=== PATIENT | male | born 1970 | race Caucasian/White ===

== ENCOUNTER → 2017-07-21 | Outpatient (CLI) | payer MEDICARE, OTHER ==
--- NOTE | 2017-07-21 17:41 | MRI ---
EXAM DESCRIPTION: Brain w/oContrast CLINICAL HISTORY: DIZZINESS COMPARISON: None TECHNIQUE: Multiplanar multisequence imaging of the brain including the intravenous administration of contrast. FINDINGS: There is no evidence of acute mass, mass effect, midline shift or hemorrhage. No focal abnormal extra-axial fluid collection is seen. The ventricles, basal cisterns and extra-axial fluid spaces are normal in size and configuration. Brain parenchymal signal is normal. IMPRESSION: Normal exam. Electronically signed by: Colin Singh 07/21/2017 5:40 PM [facility]
== END | disposition home or self-care (01) ==
LOC: MRI 11:18
PROVIDERS: ATTEND Neuromusculoskeletal Medicine & OMM
DX: R42 Dizziness and giddiness (principal)

== ENCOUNTER → 2018-02-09 | Outpatient (CLI) | payer MEDICARE, OTHER ==
--- NOTE | 2018-02-09 16:36 | MRI ---
EXAM DESCRIPTION: Cervical Spine: MRI. CLINICAL HISTORY: CERVICALGIA COMPARISON: None. TECHNIQUE: Multiplanar MRI, multiple sequences, non-contrast High-field. FINDINGS: C3-4: Minimal disc desiccation. Tiny right posterior bulge 2 to 3 mm of the disc abutting the base of the foramen and the exiting right C4 nerve with mild narrowing. Also right uncinate spur. Canal and left neuroforamen are patent. Facets are negative. C4-5: Disc desiccation and minimal disc space loss. Minimal posterior midline bulge. Left intraforaminal disc protrusion and/or consolidate spur or endplate spur encroaching on the neural foramen which is stenotic and also the left C5 nerve. Bilateral facets are negative. Small right uncinate spur. Mild canal and right neural foraminal narrowing. C5-6: Disc desiccation with disc space preserved. Posterior midline disc bulge 3 mm with annular fissure abutting the cord. Bilateral uncinate spurs. Moderate right neural foraminal narrowing and mild left neural foraminal narrowing. Bilateral facets are negative. Mild canal narrowing. C6-7: Disc desiccation with disc space preserved. Posterior midline disc bulge 4 mm impressing on the cord with bilateral broad-based bulge. Bulge with spur into the left neural foramen which is stenotic. Moderate right neural foraminal narrowing. Borderline central canal stenosis. Normal signal in the remaining discs with no bulging. Disc spaces preserved. Canal and neural foramina are patent. Facets are unremarkable. Spinal alignment upper segments are slightly kyphotic. No cord compression or cord edema. Atlantoaxial joint is negative. Base of the cerebellar tonsils is at the level of the foramen magnum. Paravertebral soft tissues unremarkable. Vertebral bodies are not compressed at any level. Normal marrow signal in the remaining vertebral bodies and the posterior elements. IMPRESSION: 1. C4-5 disc and/or endplate spur encroaching on the left neural foramen with stenosis. Correlate for left C5 radiculopathy. Minimal posterior disc bulge. 2. Posterior midline bulge of the C5-6 disc with annular fissure. Bilateral moderate neural foraminal narrowing by uncinate spurs. 3. Posterior midline C6-7 disc protrusion abutting the cord. Bilateral disc bulge encroaching on neural foramina with stenosis on the left. Correlate for left C7 radiculopathy. Borderline central canal stenosis. 4. Narrowing of the right neural foramen at C3-4 by uncinate spur or no stenosis or significant disc bulge in the canal.. Electronically signed by: Colin Manzanares MD 02/09/2018 4:35 PM CDT
== END ==
LOC: MRI 14:00
PROVIDERS: ATTEND Neuromusculoskeletal Medicine & OMM
DX: M50.20 Other cervical disc displacement, unspecified cervical region (principal)

== ENCOUNTER 2018-06-09 22:44 | Emergency (ER) | payer MEDICARE, OTHER ==
[2018-06-09 23:05] VITALS: O2SAT 96
--- NOTE | 2018-06-09 23:12 | ED.PDOC ---
History of Present Illness - General Chief Complaint: Lower Extremity Injury Stated Complaint: ankle swollen with pain Time Seen by Provider: 06/09/18 23:09 Source: patient, Vital Signs reviewed Additional Information: 48 YEAR OLD HERE FOR EVALATION OF LEFT ANKLE PAIN ONSET LAST NIGHT HE HAS HISTORY OF RESTLESS LEG SYNDROME AND PTSD AT TIMES HE KICKS AND SHKES THERE IS A POSSIBILITY HE MAY HAVE HURT HIMSELF LAST NIGHT - History of Present Illness Occurred: yesterday Pain - Lower Extremity: moderate: Left Ankle Method of Injury: twisted Improving Factors: nothing Worsening Factors: movement Allergies/Adverse Reactions: Allergies NO KNOWN ALLERGY Allergy (Unverified 02/19/15 09:07) Home Medications: Ambulatory Orders Acetaminophen W/ Codeine [Acetaminophen/Codeine 300-30 mg] 1 tab PO Q6-8H PRN # 15 tab 02/19/15 Citalopram Hydrobromide [Celexa] 20 mg PO DAILY 02/19/15 Indomethacin 25 mg PO TID PRN #15 cap 02/19/15 Mirtazapine 30 mg PO BEDTIME 02/19/15 Omeprazole 20 mg PO DAILY 02/19/15 Pramipexole Dihydrochloride [Mirapex] 1.5 mg PO BEDTIME 02/19/15 Simvastatin [Zocor] 40 mg PO DAILY 02/19/15 Temazepam [Restoril] 30 mg PO BEDTIME 02/19/15 Topiramate [Topamax] 25 mg PO BID 02/19/15 Acetamin W/Cod #3 Tab [Tylenol w/CODEINE #3] 1 ea PO Q6HR PRN #40 tab 06/09/18 Review of Systems - Review of Systems Constitutional: States: no symptoms reported EENTM: States: no symptoms reported Respiratory: States: no symptoms reported Cardiology: States: no symptoms reported Gastrointestinal/Abdominal: States: no symptoms reported Genitourinary: States: no symptoms reported Musculoskeletal: States: no symptoms reported Skin: States: no symptoms reported Neurological: States: no symptoms reported Endocrine: States: no symptoms reported Past Medical History (General) - Patient Medical History Hx Seizures: No Hx Stroke: No Hx Dementia: No Hx Asthma: No Hx of COPD: No Hx Cardiac Disorders: No Hx Congestive Heart Failure: No Hx Pacemaker: No Hx Hypertension: Yes Hx Thyroid Disease: No Hx Diabetes: No Hx Gastroesophageal Reflux: No Hx Renal Disease: No Hx Cancer: No Hx of HIV: No Hx Hepatitis C: No Hx MRSA: No Surgical History: cholecystectomy - Vaccination History Hx Tetanus, Diphtheria Vaccination: No Hx Influenza Vaccination: No Hx Pneumococcal Vaccination: No Immunizations Up to Date: No - Social History Hx Tobacco Use: No Hx Alcohol Use: No Hx Substance Use: No Hx Substance Use Treatment: No Hx Depression: No Feels Threatened In Home Enviroment: No Feels Threatened In a Relationship: No Hx Physical Abuse: No Hx Emotional Abuse: No Hx Suspected Abuse: No - Female History Patient is a Female of Child Bearing Age (10 -59 yrs old): No Family Medical History - Family History Mother Family History: Unknown Living Status: Still Living Hx Family Hypertension: Yes Physical Exam - Physical Exam General Appearance: Alert, Comfortable Eyes, Ears, Nose, Throat: PERRL/EOMI, normal ENT inspection Neck: non-tender, full range of motion Cardiovascular/Respiratory: regular rate, rhythm, no M/R/G, normal peripheral pulses Gastrointestinal/Abdominal: no organomegaly Back: normal inspection Thigh/Hip: normal inspection Leg: normal inspection Knee: normal inspection Ankle: soft tissue tenderness, swelling Foot: normal inspection, non-tender, no evidence of injury Neuro/Tendon: normal sensation Mental Status: alert, oriented x 3 Skin: normal color Progress - Results/Orders Results/Orders: X RAY REVIEWED NO FRACTURE SEEN WILL PROVIDE STIRRUP SPLINT TO THE LEFT ANKLE AND CRUTCHES FOLLOW WITH PCP Departure - Departure Clinical Impression: Sprain of right ankle or foot, Left ankle sprain Time of Disposition: 23:16 Disposition: Discharge to Home or Self Care Condition: Good Departure Forms: ED Discharge - Pt. Copy, Patient Portal Self Enrollment Instructions: DI for Leg Pain Activity: no exercise, no pushing/pulling with affected limb, other - NON WEIGHT BEARING USE CRUTCHES Home Medications: Ambulatory Orders Acetaminophen W/ Codeine [Acetaminophen/Codeine 300-30 mg] 1 tab PO Q6-8H PRN # 15 tab 02/19/15 Citalopram Hydrobromide [Celexa] 20 mg PO DAILY 02/19/15 Indomethacin 25 mg PO TID PRN #15 cap 02/19/15 Mirtazapine 30 mg PO BEDTIME 02/19/15 Omeprazole 20 mg PO DAILY 02/19/15 Pramipexole Dihydrochloride [Mirapex] 1.5 mg PO BEDTIME 02/19/15 Simvastatin [Zocor] 40 mg PO DAILY 02/19/15 Temazepam [Restoril] 30 mg PO BEDTIME 02/19/15 Topiramate [Topamax] 25 mg PO BID 02/19/15 Acetamin W/Cod #3 Tab [Tylenol w/CODEINE #3] 1 ea PO Q6HR PRN #40 tab 06/09/18
[2018-06-09] MEDS ORDERED: KETOROLAC TROMETHAMINE INJ 60 MG/2 ML VIAL IM ONE ×2 (23:15→23:16)
--- NOTE | 2018-06-09 23:35 | RAD ---
EXAM DESCRIPTION: Ankle,Left 3 Views CLINICAL HISTORY: 48 years,Male,pain to left ankle with swelling and is NWB COMPARISON: None. TECHNIQUE: Three views of the left ankle. FINDINGS: No acute fractures or dislocations are identified. No osseous destructive lesions. 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 IMPRESSION: No acute fracture is identified. Electronically signed by: Fadi Cornejo MD 06/09/2018 11:34 PM CDT
[2018-06-10 00:05] VITALS: BP 140/88; TEMP 98.4
== END 2018-06-09 23:40 | disposition home or self-care (01) ==
LOC: ER 22:44
DX: S93.401A Sprain of unspecified ligament of right ankle, initial encounter (principal); S93.402A Sprain of unspecified ligament of left ankle, initial encounter; G25.81 Restless legs syndrome; I10 Essential (primary) hypertension; Z79.899 Other long term (current) drug therapy; X58.XXXA Exposure to other specified factors, initial encounter; Y92.9 Unspecified place or not applicable
CPT/HCPCS: 73610; J1885

== ENCOUNTER → 2019-05-17 | Outpatient (CLI) | payer MEDICARE, OTHER ==
--- NOTE | 2019-05-19 14:57 | MRI ---
EXAM DESCRIPTION: MRA Head and/or Neck CLINICAL HISTORY: ANEURYSM OF BLOOD VESSEL OF BRAIN COMPARISON: MRI scan of the brain without contrast 07/21/2017. TECHNIQUE: 3D [id number] thin-section axial acquisitions through the base of the skull and the united [place]. Non contrast. MIP reconstructions. FINDINGS: Anterior circulation shows normal caliber of the vessels. No clinically significant anatomic variations or anomalies. Right posterior communicating artery between the intracranial right ICA and the right posterior cerebral artery. Posterior circulation shows normal caliber of the vessels. Right vertebral artery is dominant. No clinically significant anatomic variations or anomalies. No aneurysm, no stenosis, no mass effect, and no vasculitis in the anterior or posterior circulations. IMPRESSION: MRA of the brain without contrast is unremarkable. No cerebral aneurysm was detected. Electronically signed by: Colin Manzanares MD 05/19/2019 2:55 PM CDT
== END ==
LOC: MRI 11:00
PROVIDERS: ATTEND Emergency Medicine
DX: G47.30 Sleep apnea, unspecified (principal); R25.1 Tremor, unspecified; F43.12 Post-traumatic stress disorder, chronic; Z82.49 Family history of ischemic heart disease and other diseases of the circulatory system

== ENCOUNTER → 2019-10-01 | Outpatient (CLI) | payer MEDICARE, OTHER ==
--- NOTE | 2019-10-02 08:49 | RAD ---
EXAM DESCRIPTION: Cervical Spine,Flex/Ext CLINICAL HISTORY: CERVICAL DISC DISEASE WITH MYELOPATHY COMPARISON: Cervical spine MRI 02/09/2018. TECHNIQUE: Lateral flexion-extension views cervical spine. FINDINGS/IMPRESSION: Cervical spine flexion and extension views demonstrate stable positioning of the C6-C7 arthroplasty without displacement. The spinal alignment is intact without significant listhesis. Electronically signed by: Darren Rivas DO 10/02/2019 8:47 AM [facility]
--- NOTE | 2019-10-02 08:53 | RAD ---
EXAM DESCRIPTION: Cervical Spine, 2-3 Views CLINICAL HISTORY: CERVICAL DISC WITH MYELOPATHY COMPARISON: Cervical spine MRI 02/09/2018. TECHNIQUE: AP/lateral/ open-mouth odontoid cervical spine. FINDINGS: Mild straightening of the cervical spine and slight reversal of the cervical lordosis. There is no significant listhesis. Changes of C6-C7 discectomy and arthroplasty in satisfactory position without hardware fracture or displacement. Mild endplate sclerosis at C5-C6. Mid and lower cervical spine mild uncinate process hypertrophy. The prevertebral soft tissues are normal. IMPRESSION: 1. Changes of C6-C7 arthroplasty without hardware complication. Electronically signed by: Darren Rivas DO 10/02/2019 8:51 AM [facility]
== END ==
LOC: RAD 13:14
PROVIDERS: ATTEND Neurological Surgery
DX: M50.00 Cervical disc disorder with myelopathy, unspecified cervical region (principal); Z96.698 Presence of other orthopedic joint implants